=== PATIENT | female | born 2000 | race Caucasian/White ===

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

== ENCOUNTER 2021-11-14 13:58 | Emergency (ER) | payer BC, SELFPAY ==
--- NOTE | ~2021-11-14 | XR_ITS ---
EXAMINATION: XR foot RT min 3V DATE: 11/14/2021 14:10 INDICATION: Right foot pain TECHNIQUE: Dorsoplantar, lateral, and 2 oblique views of the right foot were obtained. COMPARISON: None. FINDINGS: There is no fracture, dislocation, or subluxation. The bones, soft tissues, and joint space s are normal. IMPRESSION: 1. No acute osseous abnormality. Reviewed, dictated and finalized at location B.
[2021-11-14 13:59] VITALS: BP 119/72; PULSE 72; RESP 18; TEMP 36.8; O2SAT 99
--- NOTE | 2021-11-14 15:08 | ED.LOWEXIN ---
HPI - Extremity Injury (Lower) General Chief Complaint: Extremity Injury, Lower Stated Complaint: right foot injury Time Seen by Provider: 11/14/21 14:22 History of Present Illness HPI Narrative: 21-year-old female presented emergency room complaints of right foot pain. Patient states that she had a box of ceramic tiles fell on her right foot yesterday while at work. Patient states that she applied ice and took ibuprofen following the injury. Reports that the swelling of the pain is located to the top of her foot pain is worse when she attempts to ambulate. Related Data Home Medications Medication Instructions Recorded Confirmed No Home Medications 03/22/20 03/22/20 Allergies Allergy/AdvReac Type Severity Reaction Status Date / Time morphine Allergy Mild Hives Verified 11/14/21 13:58 Review of Systems Review of Systems: CONSTITUTIONAL: Denies fever, chills, or sweats. EYES: Denies visual changes, redness, or discharge. ENT: Denies rhinorrhea, congestion, sore throat, or otalgia. CARDIOVASCULAR: Denies chest pain, palpitations, or edema. RESPIRATORY: Denies cough or dyspnea. GASTROINTESTINAL: Denies abdominal pain, nausea, vomiting, or diarrhea. GENITOURINARY: Denies dysuria or hematuria. SKIN: Denies rash or itching. MUSCULOSKELETAL: Reports right foot pain NEUROLOGIC: Denies headache, numbness, dizziness, or weakness. PSYCHIATRIC: Denies anxiety or depression. [facility] Past Medical History Medical History Healthy female adult Social History Social History Smoking status: Current every day smoker Exam Narrative: GENERAL: Well-appearing, well-nourished, no physical limitations, and in no acute distress. HEAD: Normocephalic, atraumatic. EYES: Conjunctivae normal, PERRLA and EOMI. CHEST: Clear to auscultation. No respiratory distress. No wheezes rales or rhonchi. No tenderness. HEART: Regular rate and rhythm. No murmur heard. Normal peripheral pulses. EXTREMITIES: right foot: Soft tissue swelling and tenderness dorsal surface of the first through third metatarsals no obvious bony abnormality, full range of motion of the foot. Neurovascular is intact distally SKIN: Warm, dry, no rash. No noted wounds NEURO: No focal deficits. Alert and oriented x3. MAEW. CN's II-XI intact bilaterally, normal gait PSYCH: Cooperative. Normal mood and affect. Course Vital Signs Vital signs: Vital Signs Temperature 36.8 C 11/14/21 13:59 Pulse Rate 72 11/14/21 13:59 Respiratory Rate 18 11/14/21 13:59 Blood Pressure 119/72 11/14/21 13:59 Pulse Oximetry 99 11/14/21 13:59 Temperature 36.8 C 11/14/21 13:59 Pulse Rate 72 11/14/21 13:59 Respiratory Rate 18 11/14/21 13:59 Blood Pressure 119/72 11/14/21 13:59 Pulse Oximetry 99 11/14/21 13:59 Discharge Plan Discharge Clinical Impression: Contusion of foot, right Patient Disposition: Home, Self-Care Condition: Stable Instructions: Antibiotic Form, Contusion in Adults (ED) Additional Instructions: Take Tylenol and ibuprofen as needed. May apply ice for to the injury for today and tomorrow. Keep the Jeff bandage on for comfort. Keep your foot elevated. Recommend using crutches for the next 3 to 4 days. Prescriptions: No Action No Home Medications Follow-up/Referrals: PHYSICIAN,ASSISTANT CONSTRUCTION SUPERINTENDENT [Primary Care Provider] - Stand Alone Forms: Work/School Release IP Time of Disposition: 15:13
== END 2021-11-14 15:31 | disposition home or self-care (01) ==
LOC: ANHED 15:25
PROVIDERS: Emergency Provider Nurse Practitioner Family
DX: S90.31XA Contusion of right foot, initial encounter (principal); F17.200 Nicotine dependence, unspecified, uncomplicated; W20.8XXA Other cause of strike by thrown, projected or falling object, initial encounter
CPT/HCPCS: 73630; 99283

== ENCOUNTER 2022-02-14 19:57 | Emergency (ER) | payer BC, SELFPAY ==
--- NOTE | 2022-02-14 19:59 | ED.URI ---
HPI - URI/Sore Throat General Chief Complaint: Upper Respiratory Infection Stated Complaint: tight chest Time Seen by Provider: 02/14/22 20:05 Source: patient and RN notes reviewed Mode of arrival: ambulatory Limitations: no limitations History of Present Illness HPI Narrative: 21-year-old female presents concern with concern for one-week history of cough and chest congestion. She reports feeling of tightness chest. Reports exposure to strep. She denies fever, aches, chills, sweats. Reports occasional nasal congestion. Denies [id number] medication MD elicited complaint: cough Related Data Allergies Allergy/AdvReac Type Severity Reaction Status Date / Time morphine Allergy Mild Hives Verified 02/14/22 20:11 Review of Systems Review of Systems: CONSTITUTIONAL: Reports malaise, fatigue. Denies chills, sweats, or fever. EYES: Denies visual changes, redness, or discharge. ENT: Reports rhinorrhea, congestion. Denies sinus pain, otalgia and sore throat. CARDIOVASCULAR: Denies chest pain, palpitations, or edema. RESPIRATORY: Reports productive take cough. Denies dyspnea. GASTROINTESTINAL: Denies abdominal pain, nausea, vomiting, diarrhea SKIN: Denies rash or itching. MUSCULOSKELETAL: Denies myalgia. NEUROLOGIC: Denies headache. All systems reviewed & are unremarkable except as noted in HPI and below PMFSH Past Medical History Medical History Healthy female adult Social History Social History Smoking status: Current every day smoker Comments At time of signature, agree with nursing past medical, surgical, social and family history. There is no relevant family history pertinent to the presenting complaint Exam Narrative: GENERAL: Well-appearing, well-nourished, and in no acute distress. HEAD: Normocephalic EYES: PERRLA, conjunctivae clear ENT: Nares clear, turbinates edematous and erythematous, clear discharge. Mucous membranes moist. TM pearly najera with dull light reflex bilaterally; no tragal tenderness. Oropharynx not erythematous without lesions. Tonsils not enlarged and without exudate, no drooling, no hoarseness, no trismus, uvula midline. NECK: Supple. No lymphadenopathy CHEST: Clear to auscultation, breath sounds equal. No wheezing, rhonchi, rales, or stridor. No respiratory distress, speaks in full sentences. HEART: Regular rate and rhythm. No murmur heard. SKIN: Warm, dry, no rash. NEURO: Alert and oriented x3. PSYCH: Normal mood and affect Course Course Emergency Course: Patient is aware of diagnosis, understands and agrees to treatment plan. Anticipatory guidance given. Patient agrees to follow-up as directed and is aware of reasons to seek care at the emergency department. Portions of this record may have been created with voice recognition software Level of Care: Express Care Visit Vital Signs Vital signs: Reviewed. MDM - URI/Sore Throat MDM Narrative Medical decision making narrative: Differential diagnosis considered: Champion virus, strep pharyngitis, allergic rhinitis, upper respiratory tract infection, sinusitis, rhinosinusitis, nasopharyngitis. viral pharyngitis, otitis media, otitis externa, pneumonia, bronchitis, viral cough syndrome, viral syndrome, and influenza. Exam findings show no acute concerns or changes; patient is non-toxic appearing and is in no distress. Patient is appropriate for outpatient treatment and follow-up. Lab Data Attestation: I reviewed the patient's lab results. Critical Care Time Critical Care Time Critical Care Time: No Discharge Plan Discharge Clinical Impression: Bronchitis Patient Disposition: Home, Self-Care Condition: Stable Instructions: Acute Bronchitis (ED) Additional Instructions: Viral illness may last between 7-21 days; antibiotics do not cure viral illness and are NOT recommended at this time. Recommend antihistamine
[2022-02-14 20:02] VITALS: BP 108/62; PULSE 85; RESP 22; TEMP 37.1; O2SAT 100
== END 2022-02-14 20:20 | disposition home or self-care (01) ==
PROVIDERS: Emergency Provider Nurse Practitioner
DX: J40 Bronchitis, not specified as acute or chronic (principal); F17.200 Nicotine dependence, unspecified, uncomplicated
CPT/HCPCS: 99213; G0463

== ENCOUNTER 2022-02-24 10:19 | Emergency (ER) | payer BC, SELFPAY ==
[2022-02-24 10:24] VITALS: BP 124/75; PULSE 91; RESP 16; TEMP 36.7; O2SAT 98
--- NOTE | 2022-02-24 11:09 | ED.URI ---
HPI - URI/Sore Throat General Chief Complaint: Upper Respiratory Infection Stated Complaint: cold flu Time Seen by Provider: 02/24/22 11:09 Source: patient, RN notes reviewed and old records reviewed Mode of arrival: ambulatory Limitations: no limitations History of Present Illness HPI Narrative: 21-year-old female who presents to [facility] with complaints of sinus issues with facial pain and headache past 2 days. Patient states she was treated 2 weeks ago for sinus congestion and drainage and also for bronchitis with steroids she finished steroids and did seem to get a little better but now symptoms back again concerning sinus drainage reports she has taken Sudafed for sinus. Patient denies acute cough, no fevers but has had chills MD elicited complaint: cough, rhinorrhea, nasal congestion and sinus pain Onset (ago): day(s) (2 days increased symptoms ill also 2 weeks ago similiar complaints) Treatments prior to arrival: other (Sudafed) Related Data Allergies Allergy/AdvReac Type Severity Reaction Status Date / Time morphine Allergy Mild Hives Verified 02/14/22 20:11 Review of Systems Review of Systems: CONSTITUTIONAL: reports, chills, sweats, no fever. EYES: Denies visual changes, redness, or discharge. ENT: Reports rhinorrhea, congestion, sinus pain, no otalgia and mild sore throat. CARDIOVASCULAR: Denies chest pain, palpitations, or edema. RESPIRATORY: Reports occasional cough.? Denies dyspnea. GASTROINTESTINAL: Denies abdominal pain, nausea, vomiting, diarrhea SKIN: Denies rash or itching. MUSCULOSKELETAL: Denies myalgia. NEUROLOGIC: Reports headache. 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 There is no relevant family history pertinent to the presenting complaint Exam Narrative: GENERAL: Well-appearing, well-nourished, and in no acute distress. HEAD: Normocephalic EYES: PERRLA, conjunctivae clear ENT: Nares clear, turbinates edematous and erythematous, clear discharge, sinus pressure and headache. Mucous membranes moist. TM pearly najera with dull light reflex bilaterally; no tragal tenderness. Oropharynx erythematous without lesions. Tonsils not enlarged and without exudate, no drooling, no hoarseness, no trismus, uvula midline. Postnasal drainage NECK: Supple. No lymphadenopathy CHEST: Clear to auscultation, breath sounds equal. No wheezing, rhonchi, rales, or stridor. No respiratory distress, speaks in full sentences.occasional cough, SAO2 98% on room air HEART: Regular rate and rhythm. No murmur heard. SKIN: Warm, dry, no rash. NEURO: Alert and oriented x3. PSYCH: Normal mood and affect Course Course Emergency Course: Patient is aware of diagnosis, understands and agrees to treatment plan.? Anticipatory guidance given.? Patient agrees to follow-up as directed and is aware of reasons to seek care at the emergency department. Portions of this record may have been created with voice recognition software Level of Care: Express Care Visit Vital Signs Vital signs: Vital Signs Temperature 36.7 C 02/24/22 10:24 Pulse Rate 91 02/24/22 10:24 Respiratory Rate 16 02/24/22 10:24 Blood Pressure 124/75 02/24/22 10:24 Pulse Oximetry 98 02/24/22 10:24 Oxygen Delivery Room Air 02/24/22 10:24 Temperature 36.7 C 02/24/22 10:24 Pulse Rate 9
== END 2022-02-24 11:26 | disposition home or self-care (01) ==
PROVIDERS: Emergency Provider Registered Nurse
DX: J06.9 Acute upper respiratory infection, unspecified (principal); J01.40 Acute pansinusitis, unspecified; F17.290 Nicotine dependence, other tobacco product, uncomplicated
CPT/HCPCS: 99213; G0463

== ENCOUNTER 2023-05-25 11:47 | Emergency (ER) | payer BC, SELFPAY ==
[2023-05-25 11:56] VITALS: BP 133/45; PULSE 81; RESP 20; TEMP 36.6; O2SAT 100
--- NOTE | 2023-05-25 12:20 | ED.EYEPROB ---
HPI - Eye Problem General Chief complaint: Eye Problems Stated complaint: poss pink eye Time Seen by Provider: 05/25/23 12:20 Source: patient, RN notes reviewed and old records reviewed Mode of arrival: ambulatory Limitations: no limitations History of Present Illness HPI Narrative: 23 year old female who presents to [place] care with complaints of bilateral eye itching which started last night and eyes matted shut this morning. Patient reports that son had pink eye last week. Patient denies any fevers chills or any URI symptoms. Patient reports that she has been using Visine eye drops to her eyes. chief complaint: eye redness and other (drainage mucoid) Onset (ago): day(s) (since last night) Onset description: other (itching last pm drainage this am) Location: both eyes Eye Symptoms: redness, itching and discharge Treatments Prior to Arrival: OTC eye drops Related Data Allergies Allergy/AdvReac Type Severity Reaction Status Date / Time morphine Allergy Mild Hives Verified 02/14/22 20:11 Review of Systems Review of Systems: CONSTITUTIONAL: Denies fever, chills, or sweats. EYES: Denies visual changes. Reports redness,, irritation, discharge.bilateral eyes ENT: Denies rhinorrhea, congestion, sore throat, or otalgia. CARDIOVASCULAR: Denies chest pain, palpitations, or edema. RESPIRATORY: Denies cough or dyspnea. SKIN: Denies rash or itching. 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 There is no relevant family history pertinent to the presenting complaint Exam Narrative: GENERAL: Well-appearing, well-nourished, and in no acute distress. HEAD: Normocephalic, atraumatic. EYES: PERRLA and EOMI. Upper and lower eyelids unremarkable. No periorbital cellulitis noted. Sclera and conjunctivae injected bilateral eyes with mucoid drainage, denies sharp pain to eyes or any visual changes. ENT: Nares clear, no rhinorrhea or epistaxis. Mucous membranes moist. NECK: Supple. no lymphadenopathy CHEST: Clear to auscultation. No respiratory distress. no cough noted SAO2 100% on room HEART: Regular rate and rhythm. No murmur heard. Normal peripheral pulses. SKIN: Warm, dry, no rash. NEURO: No focal deficits. Alert and oriented x3. Course Course Emergency Course: Patient is aware of diagnosis, understands and agrees to treatment plan. Anticipatory guidance given. Patient agrees to follow-up as directed and is aware of reasons to seek care at the emergency department. Portions of this record may have been created with voice recognition software Level of Care: Express Care Visit Vital Signs Vital signs: Vital Signs Temperature 36.6 C 05/25/23 11:56 Pulse Rate 81 05/25/23 11:56 Respiratory Rate 20 05/25/23 11:56 Blood Pressure 133/45 L 05/25/23 11:56 Pulse Oximetry 100 05/25/23 11:56 Oxygen Delivery Room Air 05/25/23 11:56 Temperature 36.6 C 05/25/23 11:56 Pulse Rate 81 05/25/23 11:56 Respiratory Rate 20 05/25/23 11:56 Blood Pressure 133/45 L 05/25/23 11:56 Pulse Oximetry 100 05/25/23 11:56 Oxygen Delivery Room Air 05/25/23 11:56 Reviewed MDM - Eye Problem MDM Narrative Medical decision making narrative: Consideration of the following conditions may be warranted for the presenting p
== END 2023-05-25 12:56 | disposition home or self-care (01) ==
PROVIDERS: Emergency Provider Registered Nurse
DX: H10.9 Unspecified conjunctivitis (principal)
CPT/HCPCS: 99213; G0463

== ENCOUNTER 2023-07-22 17:45 | Emergency (ER) | payer BC, SELFPAY ==
[2023-07-22 17:50] VITALS: BP 117/81; PULSE 102; RESP 16; TEMP 36.7; O2SAT 99
--- NOTE | 2023-07-22 18:15 | ED.EYEPROB ---
HPI - Eye Problem General Chief complaint: Eye Problems Stated complaint: Eye Problem Source: patient Mode of arrival: ambulatory Limitations: no limitations History of Present Illness HPI Narrative: 23 y/o female presented for c/o left eye irritation since yesterday. Endorses ache, redness, itching, and green drainage. Denies photophobia, headache, vision changes, n/v/d/f/c. 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 chief complaint: eye pain Related Data Allergies Allergy/AdvReac Type Severity Reaction Status Date / Time morphine Allergy Mild Hives Verified 07/22/23 17:58 Review of Systems Review of Systems: CONSTITUTIONAL: Denies body aches, fever, chills EYES:Endorses drainage, redness and pain to left eye; Denies visual changes, swelling, FB sensation, photophobia ENT: Denies rhinorrhea, congestion, sore throat, or otalgia. CARDIOVASCULAR: Denies chest pain, palpitations RESPIRATORY: Denies cough or dyspnea. SKIN: Denies rash, itching, or wounds. MUSCULOSKELETAL: Denies back pain, joint pain, or myalgia. 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 Please see nursing chart for further information. There is no relevant family history pertinent to the presenting complaint Exam Narrative: GENERAL: Well-appearing HEAD: Normocephalic, atraumatic. EYES: Left conjunctival injection, no active drainage; no eye lid swelling. PERRLA. EOMI. Lid eversion shows no FB. ENT: Mucous membranes pink and moist. No rhinorrhea. TMs normal bilaterally. CHEST: Clear to auscultation. HEART: Regular rate and rhythm. ABDOMEN: Soft, nontender, nondistended SKIN: Warm, dry, no rash. Normal skin turgor. NEURO: No focal deficits. Alert and oriented x3 PSYCH: Normal affect. Course Course Emergency Course: Patient is aware of diagnosis, understands and agrees to treatment plan. Anticipatory guidance given. Patient agrees to follow-up as directed and is aware of reasons to seek care at the emergency department. Portions of this record may have been created with voice recognition software Level of Care: Express Care Visit Vital Signs Vital signs: Vital Signs Temperature 98.1 F 07/22/23 17:50 Pulse Rate 102 H 07/22/23 17:50 Respiratory Rate 16 07/22/23 17:50 Blood Pressure 117/81 07/22/23 17:50 Pulse Oximetry 99 07/22/23 17:50 Oxygen Delivery Room Air 07/22/23 17:50 Temperature 98.1 F 07/22/23 17:50 Pulse Rate 102 H 07/22/23 17:50 Respiratory Rate 16 07/22/23 17:50 Blood Pressure 117/81 07/22/23 17:50 Pulse Oximetry 99 07/22/23 17:50 Oxygen Delivery Room Air 07/22/23 17:50 MDM - Eye Problem MDM Narrative Medical decision making narrative: Discussed physical exam findings c/w bacterial conjunctivitis. Advised supportive measures and signs/symptoms to go to the ER. Pt is appropriate for outpt treatment and f/u. Differential Diagnosis Differential diagnosis: Likely corneal abrasion, conjunctivitis, acute iritis, periorbital cellulitis and other Discharge Plan Discharge Clinical Impression: Bacterial conjunctivitis Patient Disposition: Home, Self-Care Condition: Stable Instructions: Antibiotic Form, Conjuncti
== END 2023-07-22 18:25 | disposition home or self-care (01) ==
PROVIDERS: Emergency Provider Nurse Practitioner Family
DX: H10.9 Unspecified conjunctivitis (principal)
CPT/HCPCS: 99213; G0463